=== PATIENT | female | born 1985 | race Two or more races ===

== ENCOUNTER 2018-05-12 14:13 | Emergency (ER) | payer MEDICAID ==
[~2018-05-12] VITALS: Ht 167.6 cm; Wt 108.9 kg
--- NOTE | 2018-05-12 14:29 | NUR ---
[id number] FROM COURT HOUSE: S/P WITNESSES SEIZURE. NAD NOTED, VSS, RESP EVEN AND UNLABORED, PT WAS PUT ON MONITOR, AND HOSPITAL GOWN. WAITING FOR MD BLANCO.
[2018-05-12] MEDS ORDERED: LORAZEPAM INJ 2 MG/ML VIAL ONE (14:45)
[2018-05-12] MEDS ORDERED: LORAZEPAM INJ 2 MG/ML VIAL IV ONE (15:00)
[2018-05-12 15:21] LABS: BASOPHILS % (AUTO) 0.5 % (0.0-2.0); EOSINOPHILS % (AUTO) 0.9 % (0.0-6.0); HEMATOCRIT 40 % (33-45); HEMOGLOBIN 13.7 g/dL (11.5-14.8); LYMPHOCYTES % (AUTO) 32.4 % (20.0-44.0); MEAN CORPUSCULAR HGB CONC 35 g/dl (31.0-36.0); MEAN CORPUSCULAR VOLUME 91 fL (82-100); MONOCYTES # (AUTO) 0.7 /CMM (0.1-1.30); MONOCYTES % (AUTO) 7.1 % (2.0-12.0); NEUTROPHILS # (AUTO) 5.4 /CMM (1.8-8.9); NEUTROPHILS % (AUTO) 59.1 % (43.0-81.0); PLATELET COUNT (AUTO) 244 /CMM (150-450); RDW COEFFICIENT OF VARIATION 12.6 (11.5-15.0); RED BLOOD CELL COUNT(AUTO) 4.36 MIL/uL (4.0-5.2); WHITE BLOOD COUNT (AUTO) 9.2 K/uL (4.3-11.0)
[2018-05-12] MEDS ORDERED: IV NS 0.9% 1,000 ML BAG IV ONE (15:30)
[2018-05-12 15:31] LABS: CALCIUM, SERUM 8.7 mg/dL (8.5-10.1); CREATININE 0.8 mg/dL (0.6-1.3); POTASSIUM 3.1 mmol/L (3.5-5.1)
[2018-05-12 15:36] LABS: INR 0.99 (0.85-1.15)
[2018-05-12 16:29] LABS: BILIRUBIN,URINE Negative (NEGATIVE); BLOOD, URINE Moderate Ery/uL (NEGATIVE); COLOR,URINE Yellow (YELLOW); KETONES,URINE Negative (NEGATIVE); LEUKOCYTE ESTERASE ,URINE Negative (NEGATIVE); NITRITE, URINE Negative (NEGATIVE); PROTEIN,URINE Negative (NEGATIVE); UGLUCOSE Negative (NEGATIVE); UROBILINOGEN,URINE 0.2 EU/dL (0.2)
[2018-05-12 16:30] LABS: APPEARANCE,URINE SLIGHTLY HAZY (CLEAR)
[2018-05-12 16:33] LABS: BACTERIA,URINE None seen /HPF (None Seen); SQUAMOUS EPITHELIAL CELL,UR Few /HPF (None Seen); WBC,URINE 0-3 /HPF (0-3)
--- NOTE | 2018-05-12 16:41 | NUR ---
CALLED [facility] SPOKE WITH GREG, EXPECTING A CALL BACK FROM A [facility]
--- NOTE | 2018-05-12 16:52 | NUR ---
[facility] CALL[facility] CALLED, ON THE PHONE WITH FILI TSANG.
--- NOTE | 2018-05-12 17:13 | NUR ---
[facility] CALLED BACK WITH TX INFO PATIENT WILL BE TRANSFERED TO [facility] ER ACCEPTED BY DR JEOVANY MACK TO GIVE REPORT ALS ETA [id number]
[2018-05-12 18:36] VITALS: BP 138/98
== END 2018-05-12 18:39 ==
LOC: ER 14:15
DX: G40.909 Epilepsy, unspecified, not intractable, without status epilepticus (principal); R79.1 Abnormal coagulation profile
CPT/HCPCS: 36415; 80048-TC; 80184-TC; 81000-TC; 84703-TC; 85025-TC; 85730-TC; A4606; J2060; J7030; Z7610